=== PATIENT | female | born 1940 | race Caucasian/White ===

== ENCOUNTER → 2016-10-03 | Outpatient (CLI) | payer MEDICARE ==
[~2016-10-03] MED LIST: ACETAMINOPHEN PO; ACTONEL PO; ALPRAZOLAM PO; ATENOLOL PO; AUGMENTIN PO; BACTRIM DS TABL1 TA1 PO; LISINOPRIL-HCTZ1 T16 PO; PROTONIX PO; PROZAC PO; SYNTHROID25 MCG PO
--- NOTE | ~2016-10-03 | US128 ---
[id number] [facility]. [facility] [address]. [place], [place] [address] [id number] O MR#: [id number] Acc #: [id number] NAME: JAYSHREE SALVADOR : 1940 SEX: F STUDY DATE/TIME: 10/03/2016 9:22 UNIT: [facility] ROOM: STUDY DESCRIPTION: Thyroid Attending Physician: Dutch Elizabeth M.D. Ordering Physician: Dutch Elizabeth M.D. Primary Care Physician: Matt Lovett M.D. MEDICAL IMAGING REPORT This report is preliminary unless electronic signature is present EXAM Thyroid ultrasound, 10/03/2016 COMPARISON Prior ultrasound 12/29/2013 HISTORY Follow-up for multiple known thyroid nodules. FINDINGS In the right lobe of the gland there are multiple nodules. Most are under 1.0 cm in size but the largest of these is in the posterior mid to lower pole of the gland and measure 1.9 x 2.1 x 1.8 cm in size. In the left lobe of the gland there are probably multiple nodules versus one multilobular large nodule. There is a medial mid pole nodule measuring 1.7 x 1.7 x 1.9 cm and a lower pole nodule measuring 2.2 x 2.5 x 1.6 cm and an extreme lower pole nodule about 1.5 x 1.5 x 1.7 cm. Since the prior exam, the right lobe dominant nodule appears probably stable. Left lobe nodules were measured previously in a single group rather than individually. Duplicating those measurement techniques it appears likely there has been no substantial interval change since the prior study. IMPRESSION Multiple thyroid nodules. Slightly different measurement techniques have been used by technologist on different exams. Carefully evaluating the images it appears likely there has been no convincing interval change since the examination of 2013 and probably since the examination of 2012. Dictated by... Marques Barney M.D. THIS IS AN ELECTRONICALLY VERIFIED REPORT Marques Barney M.D. at 10/20/2016 5:05 PM Eric TD: 10/18/2016 08:10 JOB #: [id number] MEDICAL IMAGING REPORT Page 1 of 1 COPY
== END | disposition home or self-care (01) ==
LOC: CWCC 08:25
DX: E04.2 Nontoxic multinodular goiter (principal)
CPT/HCPCS: 76536